=== PATIENT | male | born 1960 | race Caucasian/White ===

== ENCOUNTER → 2017-05-22 | Outpatient (CLI) | payer OTHER | LOC: BMCIMAGING 10:51 | PROVIDERS: ATTEND Internal Medicine | DX: Z13.820 Encounter for screening for osteoporosis (principal); M85.89 Other specified disorders of bone density and structure, multiple sites; B20 Human immunodeficiency virus [HIV] disease; Z79.899 Other long term (current) drug therapy ==

== ENCOUNTER → 2017-11-21 | Outpatient (CLI) | payer OTHER | DX: Z01.818 Encounter for other preprocedural examination (principal); M17.12 Unilateral primary osteoarthritis, left knee; M71.22 Synovial cyst of popliteal space [Baker], left knee ==

== ENCOUNTER 2017-12-26 06:02 | Observation (INO) | payer OTHER ==
[~2017-12-26 06:02] MED LIST: ROPIVACAINE 0.2% 80 MG, EPINEPHrine 0.2 MG, KETOROLAC TROMETHAMINE 30 MG in SYRINGE 0 ML IU ONE; TRANEXAMIC ACID 3,000 MG in NS (SYRINGE) 50 ML IRR ONE
[2017-12-26] MEDS ORDERED: ceFAZolin 2 GM/DEXTROSE 100 ML IV ONE (06:39)
[2017-12-26] MEDS ORDERED: ACETAMINOPHEN 325 MG TAB PO ONE (06:39)
[2017-12-26] MEDS ORDERED: DEXAMETHASONE 4 MG/ML VIAL IVP ONE (06:39)
[2017-12-26] MEDS ORDERED: FAMOTIDINE 20 MG TAB PO ONE (06:39)
[2017-12-26] MEDS ORDERED: VANCOMYCIN 1 GM VIAL ONE (06:41)
[2017-12-26] MEDS ORDERED: TRANEXAMIC ACID 3,000 MG/50 ML BAG IRR ONE (06:41)
[2017-12-26] MEDS ORDERED: MIDAZOLAM 2 MG/2 ML VIAL ONE ×2 (06:43→07:33)
[2017-12-26] MEDS ORDERED: PROPOFOL/EMULSION 500 MG/50 ML BOTTLE IV ONE (06:44)
[2017-12-26] MEDS ORDERED: fentaNYL 100 MCG/2 ML INJ ONE (06:44)
--- NOTE | 2017-12-26 07:09 | PDHPUP ---
History & Physical Update H&P update statement: This history and physical update is based on an assessment of the patient which was completed after admission or registration (within 24 hours), but prior to the surgery/procedure. H&P update: H&P reviewed & patient examined, no change in patient's condition since H&P completed
[2017-12-26] MEDS ORDERED: MIDAZOLAM 2 MG/2 ML VIAL IVP ONE (07:28)
[2017-12-26] MEDS ORDERED: BUPIVACAINE/DEXTROSE 7.5MG/ML 2 ML SPINAL AMP SP ONE (07:36)
[2017-12-26] MEDS ORDERED: NALOXONE HCL 0.4 MG/ML INJ IVP PRN (07:43)
[2017-12-26] MEDS ORDERED: MEPERIDINE 25 MG/0.5 ML AMP IVP PRN (07:43)
[2017-12-26] MEDS ORDERED: DIAZEPAM 5 MG/ML 1 ML SYR IVP PRN (07:43)
[2017-12-26] MEDS ORDERED: HYDROmorphONE/DILAUDID 1 MG/ML INJ IVP PRN (07:43)
[2017-12-26] MEDS ORDERED: ALBUTEROL 3 ML DEYVIAL IH PRN (07:43)
[2017-12-26] MEDS ORDERED: PROMETHAZINE HCL 25 MG/ML INJ IVP PRN ×2 (07:43→09:49)
[2017-12-26] MEDS ORDERED: ONDANSETRON 4 MG/2 ML VIAL IVP PRN ×2 (07:43→09:49)
[2017-12-26] MEDS ORDERED: LABETALOL HCL 5 MG/ML 20 ML MDV IVP PRN (07:43)
[2017-12-26] MEDS ORDERED: fentaNYL 100 MCG/2 ML INJ IVP PRN (07:43)
--- NOTE | 2017-12-26 07:43 | PDANEPAE ---
ANE Past Medical History - Cardiovascular History Hx Hypertension: No Hx Arrhythmias: No Hx Chest Pain: No Hx Coronary Artery / Peripheral Vascular Disease: No Hx CHF / Valvular Disease: No Hx Palpitations: No - Pulmonary History Hx COPD: No Hx Asthma/Reactive Airway Disease: No Hx Recent Upper Respiratory Infection: No Hx Oxygen in Use at Home: No Hx Sleep Apnea: No Sleep Apnea Screening Result - Last Documented: Negative - Neurologic History Hx Cerebrovascular Accident: No Hx Seizures: No Hx Dementia: No - Endocrine History Hx Diabetes: No - Renal History Hx Renal Disorders: No - Liver History Hx Hepatic Disorders: No - Neurological & Psychiatric Hx Hx Neurological and Psychiatric Disorders: No - Cancer History Hx Cancer: No - Congenital Disorder History Hx Congenital Disorders: No - GI History Hx Gastrointestinal Disorders: No - Other Health History Other Health History: HIV POSITIVE - Chronic Pain History Chronic Pain: Yes - Surgical History Prior Surgeries: L KNEE SCOPE AND MENISECTOMY 2004. MICRODISCECTOMY 1897&1992. TONSILLECTOMY CHILD ANE Review of Systems Review of Systems: - Exercise capacity METS (RN): 6 METS ANE Patient History - Allergies Allergies/Adverse Reactions: gluten Allergy (Verified 12/26/17 06:42) lactose Allergy (Verified 12/26/17 06:42) Penicillins Allergy (Verified 12/26/17 06:42) Rash - Home Medications Home Medications: Abacavir Sulfate/Lamivudine [Epzicom Tablet] 1 each PO DAILY 12/11/17 [Last Taken Unknown] Atazanavir Sulfate [Reyataz] 400 mg PO DAILY 12/11/17 [Last Taken Unknown] Herbals/Supplements -Info Only 1 ea PO DAILY 12/11/17 [Last Taken Unknown] Multivitamins [Multivitamin (*)] 1 each PO DAILY 12/11/17 [Last Taken Unknown] valACYclovir [Valtrex (*)] 1,000 mg PO DAILY 12/11/17 [Last Taken Unknown] - NPO status NPO Since - Liquids (Date): 12/26/17 NPO Since - Liquids (Time): 05:00 NPO Since - Solids (Date): 12/25/17 NPO Since - Solids (Time): 19:00 - Smoking Hx Smoking Status: Never smoked - Family Anes Hx Family Hx Anesthesia Complications: NA ANE Labs/Vital Signs - Vital Signs Blood Pressure: 119/79 Heart Rate: 60 Respiratory Rate: 16 O2 Sat (%): 96 Height: 180.34 cm Weight: 72.575 kg ANE Physical Exam - Airway Neck exam: FROM Mallampati Score: Class 1 Mouth exam: normal dental/mouth exam - Pulmonary Pulmonary: no respiratory distress, clear to auscultation - Cardiovascular Cardiovascular: regular rate and rhythym, no murmur, rub, or gallop - ASA Status ASA Status: II ANE Anesthesia Plan Anesthesia Plan: spinal Regional Anesthesia: single shot NB
[2017-12-26] MEDS ORDERED: ROPIVACAINE HCL 150 MG/30 ML INJ ONE (08:04)
[2017-12-26] MEDS ORDERED: ONDANSETRON 4 MG/2 ML VIAL ONE (08:14)
[2017-12-26] MEDS ORDERED: DEXAMETHASONE 4 MG/ML VIAL ONE (08:14)
[2017-12-26] MEDS ORDERED: LACTULOSE 20 GM/30 ML UDCUP PO PRN (09:49)
[2017-12-26] MEDS ORDERED: BISACODYL 10 MG SUPP PR PRN (09:49)
[2017-12-26] MEDS ORDERED: ONDANSETRON DISINTEGRATING 4 MG TAB PO PRN (09:49)
[2017-12-26] MEDS ORDERED: METOCLOPRAMIDE 10 MG/2 ML VIAL IVP PRN (09:49)
[2017-12-26] MEDS ORDERED: diphenhydrAMINE 25 MG CAP PO PRN (09:49)
[2017-12-26] MEDS ORDERED: POLYETHYLENE GLYCOL 3350 17 GM PKT PO PRN (09:49)
[2017-12-26] MEDS ORDERED: PROMETHAZINE HCL 25 MG SUPPR PR PRN (09:49)
[2017-12-26] MEDS ORDERED: DIPHENOXYLATE/ATROPINE LOMOTIL 1 TAB PO PRN (09:49)
[2017-12-26] MEDS ORDERED: TEMAZEPAM 15 MG CAP PO PRN (09:49)
[2017-12-26] MEDS ORDERED: CYCLOBENZAPRINE 10 MG TAB PO PRN (09:49)
[2017-12-26] MEDS ORDERED: MAGNESIUM HYDROXIDE 30 ML UDCUP PO PRN (09:49)
--- NOTE | 2017-12-26 09:49 | POSTOPPROG ---
Post Op Note Date of Operation: 12/26/17 Surgeon: Lopez Gomez Water Trainer: maverick gomez Anesthesiologist: dr. colindres Anesthesia: Spinal, Other (Specify) (adductor canal block) Pre-op Diagnosis: left knee OA Post-op Diagnosis: same Indication: left knee pain Procedure: L TKA robot assisted Findings: severe knee OA Inf/Abcess present in the surg proc area at time of surgery?: No EBL: 50-100
[2017-12-26] MEDS ORDERED: LR 1,000 ML IV SCH (10:00)
[2017-12-26] MEDS: ACETAMINOPHEN 325 MG TAB PO SCH ×2 (12:21→18:11)
--- NOTE | 2017-12-26 13:08 | POSTANESTH ---
Post Anesthetic Evaluation Cardiovascular Status: Normal, Stable Respiratory Status: Normal, Stable Level of Consciousness/Mental Status: Can Participate in Eval, Mildly Sleepy, Arousable Pain Control: Adequate, Prn Tx Ordered Nausea/Vomiting Control: Adequate, Prn Tx Ordered Complications Possibly Related to Anesthesia: None Noted
[2017-12-26] MEDS: ceFAZolin 2 GM/DEXTROSE 100 ML IV SCH (16:24)
[2017-12-26] MEDS: ASPIRIN 81 MG CHEWABLE TAB PO SCH (20:32)
[2017-12-26] MEDS: FAMOTIDINE 20 MG TAB PO SCH (20:34)
[2017-12-26] MEDS: SENNOSIDES/DOCUSATE SODIUM TAB PO SCH (20:34)
[2017-12-26] MEDS ORDERED: ATAZANAVIR SULFATE PO SCH (21:00)
[2017-12-26] MEDS ORDERED: LAMIVUDINE PO SCH (21:00)
[2017-12-26] MEDS ORDERED: ABACAVIR SULFATE PO SCH (21:00)
[2017-12-27] MEDS: ceFAZolin 2 GM/DEXTROSE 100 ML IV SCH (00:01)
[2017-12-27] MEDS: ACETAMINOPHEN 325 MG TAB PO SCH ×2 (00:01→06:09)
[2017-12-27] MEDS: oxyCODONE IR 5 MG TAB PO PRN ×2 (06:59→08:19)
[2017-12-27 07:35] VITALS: BP 111/63
--- NOTE | 2017-12-27 08:16 | GOP ---
DATE OF OPERATION: 12/26/2017 SURGEON: Cecy Engel MD PAINTER AIRCRAFT: Lyn Engel, JARED. ANESTHESIA: Spinal. PREOPERATIVE DIAGNOSIS: Left knee osteoarthritis. POSTOPERATIVE DIAGNOSIS: Left knee osteoarthritis. PROCEDURE PERFORMED: Left total knee arthroplasty with computer navigation, robotic assist. FINDINGS: ESTIMATED BLOOD LOSS: 30 cc. INDICATIONS: The patient is a 57-year-old male with severe and progressive pain and deformity of the left knee unresponsive to conservative care. The risks and benefits of surgical intervention were e xplained in detail. DESCRIPTION OF PROCEDURE: The patient was brought to the operative room and placed on the table in t he supine position. Spinal anesthesia was induced without difficulty. A pneumatic tourniquet was appl ied about the left proximal thigh, and the leg was prepped and draped in a sterile fashion. The leg h older was applied. After exsanguination by elevation the tourniquet was inflated to 250 mmHg. Incision was made anterior medial from the tibial tuberosity to a point cm proximal to the superior pole of the patella. Medial parapatellar arthrotomy was carried out from the superior pole of the patella and posteriorly in line with the fibers of the Type II VMO. The medial collateral liga ment was elevated and the infrapatellar fat pad was resected. The patella was everted and the articular surface was excised. A 38 mm patellar button was placed. Attention was turned first to the distal aspect of the femur. After exposure of the femur, 2 half pi ns were placed for fixation of the femoral array. In a similar fashion, 2 pins were placed anteromed ial on the tibia for fixation of the tibial array. External land marking and registration of the hip center was performed without difficulty. Internal femoral and tibial registration was carried out w ithout difficulty and the femoral and tibial checkpoints were placed and verified for accuracy. Attention was turned to the femur. The foot print for the size 6 femoral component was cut with the saw using the gopogo robotic system and verified for accuracy against the CT based plan. In a similar f ashion, the saw was used to cut the footprint for the size 6 tibial component using the gopogo system an d verified for accuracy against the CT based plan. The tibial articular surface was excised without d ifficulty, followed by the intercondylar box cut. The knee was extended and the remnants of the medial and lateral meniscus were excised. The posterior capsule was injected with ropivacaine, epinephrine and Toradol. A size 6 tibial tray was positioned . Trial reduction was then carried out. There was excellent range of motion, alignment, and stability using the 6 x 9 mm polyethylene. All trials were then removed. The joint was thoroughly irrigated and carefully dried. The Pressfit co mponents were implanted. The permanent 6 x 9 mm polyethylene was placed without difficulty. The tourniquet was deflated and all bleeders were coagulated. The wound was thoroughly irrigated and closed using interrupted sutures of 2-0 Vicryl for the joint capsule. The subcu was closed with 3-0 V icryl and the skin with 4-0 Monocryl. Dermabond and Steri-Strips were applied followed by a compress unique dressing. The patient was then moved from the operating room to the recovery room in good conditi on, having tolerated the procedure well. /[id number]/MODL
[2017-12-27] MEDS: FAMOTIDINE 20 MG TAB PO SCH (08:18)
[2017-12-27] MEDS: ASPIRIN 81 MG CHEWABLE TAB PO SCH (08:19)
[2017-12-27] MEDS: SENNOSIDES/DOCUSATE SODIUM TAB PO SCH (08:20)
--- NOTE | 2017-12-27 08:29 | SOAPPROG ---
SOAP Progress Note Assessment/Plan: Assessment: Patient is doing well POD 1 s/p L TKA Pain management: pain is well controlled on oral pain meds. VTE ppx: recommend aspirin 81 mg BID for 4 weeks, cont EDUARDO and SCDs D/c planning: d/c to home today pending release from PT postop urinary retention: resolved today Plan: 12/27/17 08:28 12/27/17 08:29 Subjective: patient is doing well, denies severe pain, denies chest pain, N/V and SOB. Objective: Vital Signs Temp Pulse Resp BP Pulse Ox 36.7 C 60 16 111/63 95 12/27/17 07:33 12/27/17 07:33 12/27/17 07:33 12/27/17 07:33 12/27/17 07:33 Laboratory Results 12/27/17 04:37 12/26/17 12/27/17 12/28/17 05:59 05:59 05:59 Intake Total 1650 500 Output Total 1600 200 Balance 50 300 LLE: incision dressing is clean and dry, NVI, +pf/df ICD10 Worksheet Patient Problems: Problems Problem Status Onset Primary localized osteoarthritis of left knee Acute
--- NOTE | 2017-12-27 08:48 | PCMIDPN ---
Assessment/Plan: 1. Status post left knee arthroplasty for osteoarthritis: Sincerely appreciate Dr. Nelson Sethi assistance. Hopefully the patient can go home today. 2. HIV: Continue antiretrovirals. The patient has brought his medications from home. 3. Miscellaneous: Patient has not yet had a flu vaccine, but will get 1 in mid January. Subjective: Patient is status post left knee arthroplasty and is doing well. Walking around with the physical therapist. Did not sleep well, and anxious to go home. Received perioperative cefazolin. Objective: Perioperative cefazolin No fevers Vital Signs Temp Pulse Resp BP Pulse Ox 36.7 C 60 16 111/63 95 12/27/17 07:33 12/27/17 07:33 12/27/17 07:33 12/27/17 07:33 12/27/17 07:33 Laboratory Results 12/27/17 04:37 12/26/17 12/27/17 12/28/17 05:59 05:59 05:59 Intake Total 1650 500 Output Total 1600 200 Balance 50 300 - Physical Exam General Appearance: alert, no apparent distress Extremities: other (Left knee is obviously wrapped and I did not unwrap it.) ICD10 Worksheet Patient Problems: Problems Problem Status Onset Primary localized osteoarthritis of left knee Acute
--- NOTE | 2017-12-27 08:56 | GDS ---
ADMISSION DIAGNOSIS: Left knee osteoarthritis. DISCHARGE DIAGNOSIS: Left knee osteoarthritis. PROCEDURE: Left total knee arthroplasty. VTE PROPHYLAXIS: Recommend aspirin 81 mg twice daily for 4 weeks. BRIEF DESCRIPTION OF HOSPITAL STAY: Patient was admitted for an elective joint arthroplasty. The pat ient tolerated the procedure well and has passed physical therapy. The patient was given appropriate antibiotic prophylaxis and venous thromboembolism prophylaxis. The patient's pain was well controlled on oral pain medication, patient was holding down food, and had urinated. Decision was made to disch arge the patient. The patient was given post-operative prescriptions pre-operatively. PLAN: To follow up as scheduled with Dr. Engel's office January 17. /[id number]/MODL
[2017-12-27] MEDS ORDERED: valACYclovir 500 MG TAB PO SCH (09:00)
--- NOTE | 2017-12-27 11:19 | ASMTLACE ---
LACE Length of stay for Answers: 2 days current admission Acuity / Level of Answers: No Care: Did the patient have an inpatient admission? Comorbidities - select Answers: Opioid dependence all that apply / Chronic pain Other Notes: HIV + # of Emergency department Answers: 0 visits in the last 6 months Score: 7 Date Signed: 12/27/2017 11:19 AM Electronically Signed By:NATASHA Harper
== END 2017-12-27 10:53 | disposition home or self-care (01) ==
LOC: FSGY 06:02 → EDSTATUS 07:15 → F3E 09:49 → F3N 11:15
PROVIDERS: ADMIT Orthopaedic Surgery; ATTEND Orthopaedic Surgery
DX: M17.12 Unilateral primary osteoarthritis, left knee (principal); R33.9 Retention of urine, unspecified; B20 Human immunodeficiency virus [HIV] disease
CPT/HCPCS: 97116-GP; 97161-GP; 97530-GP; G0378; J0690; J1100; J2250; J2405; J2550; J2704; J2795; J3010; J3370

== ENCOUNTER → 2018-07-15 | Outpatient (CLI) | payer OTHER | LOC: FIMAGING 14:20 | PROVIDERS: ATTEND Internal Medicine | DX: R05 Cough (principal) ==